=== PATIENT | female | born 1980 | race Hispanic/Latino ===

== ENCOUNTER 2021-03-07 19:52 | Inpatient (IN) | payer BC ==
[~2021-03-07] VITALS: Ht 165.1 cm; Wt 107.5 kg
[2021-03-07] MEDS ORDERED: LACTATED RINGERS 1000ML 1,000 ML IV SCH (23:00)
[2021-03-07 23:11] LABS: MEAN CORPUSCULAR HEMOGLOBIN 24.3 pg (27.0-33.0); MEAN CORPUSCULAR HGB CONC 31.6 g/dL (32.0-36.0); MEAN CORPUSCULAR VOLUME 76.7 fL (79-99); PLATELET COUNT (AUTO) 205 K/uL (130-400); RED BLOOD CELL COUNT(AUTO) 4.04 MIL/uL (4.00-5.50); RED CELL DISTRIBUTION WIDTH 14.6 % (11.0-15.5); WHITE BLOOD COUNT (AUTO) 5.4 K/uL (4.8-10.8)
[2021-03-07 23:25] LABS: APPEARANCE,URINE Clear (CLEAR); BILIRUBIN,URINE Negative (NEGATIVE); COLOR,URINE Yellow (YELLOW); GLUCOSE, URINE (UA) Negative (NEGATIVE); KETONES,URINE Trace mg/dL (NEGATIVE); LEUKOCYTE ESTERASE ,URINE Trace (NEGATIVE); NITRATE,URINE Negative (NEGATIVE); OCCULT BLOOD,URINE Negative (NEGATIVE); PROTEIN,URINE POS 1+ mg/dL (NEGATIVE)
[2021-03-07 23:36] LABS: BACTERIA,URINE Few /HPF (None Seen); RBC,URINE None Seen /HPF (0-1); SQUAMOUS EPITHELIAL CELL,UR Few /HPF (0-2); WBC,URINE 0-1 /HPF (0-1)
[2021-03-08 03:31] VITALS: BP 120/63
[2021-03-08] MEDS ORDERED: CEFAZOLIN SODIUM 1 GM VIAL IVP PRN (06:00)
[2021-03-08] MEDS ORDERED: MORPHINE PF 100MG/10ML AMP IV ONE (07:04)
[2021-03-08] MEDS ORDERED: EPHEDRINE SULFATE 50 MG/ML AMPULE ONE (07:04)
[2021-03-08] MEDS ORDERED: OXYTOCIN 10 USP UNITS/ML ONE (07:04)
[2021-03-08] MEDS ORDERED: ONDANSETRON 4MG INJ ONE (07:04)
[2021-03-08] MEDS ORDERED: CEFAZOLIN SODIUM 3 GM VIAL IV ONE (07:13)
[2021-03-08] MEDS ORDERED: MISOPROSTOL 200 MCG TABLET ONE (07:13)
[2021-03-08] MEDS ORDERED: METHYLERGONOVINE MALEATE 0.2 MG/1 ML ML ONE (07:18)
[2021-03-08] MEDS: OXYTOCIN-LR 20 UNITS/1000 ML 1,000 ML IV PRN ×2 (07:50→09:48)
[2021-03-08] MEDS ORDERED: FONDAPARINUX SODIUM 2.5 MG/0.5 ML SQ SCH (08:30)
[2021-03-08] MEDS ORDERED: OXYTOCIN-LR 20 UNITS/1000 ML 1,000 ML IV ONE (09:17)
[2021-03-08] MEDS ORDERED: MEPERIDINE-PF 75 MG/ML SYG IM PRN (09:30)
[2021-03-08] MEDS ORDERED: PROMETHAZINE HCL 25 MG/ML 1ML AMPULE IM PRN (09:30)
[2021-03-08] MEDS ORDERED: 0.9%NACL 10ML VIAL IVP PRN (09:30)
[2021-03-08 10:30] VITALS: BP 119/69
[2021-03-08 10:49] LABS: HEMATOCRIT 33.7 % (36-48)
[2021-03-08 11:50] VITALS: BP 118/69
[2021-03-08] MEDS ORDERED: LORA10CA PO (13:06)
[2021-03-08] MEDS ORDERED: PNV11TAB5 PO (13:06)
[2021-03-08] MEDS ORDERED: NALOXONE HCL 0.4 MG/1 ML ML IVP PRN ×3 (15:00)
[2021-03-08] MEDS ORDERED: EPHEDRINE SULFATE 50 MG/ML AMPULE IVP PRN (15:00)
[2021-03-08] MEDS ORDERED: DiphenhydrAMINE HCL 50 MG/ML VIAL IVP PRN (15:00)
[2021-03-08] MEDS: CEFAZOLIN SODIUM 1 GM VIAL IVP SCH ×2 (15:17→23:02)
[2021-03-08] MEDS: ONDANSETRON 4MG INJ IVP PRN (15:18)
[2021-03-08] MEDS: DEXTROSE 5 %-0.45 % NACL 1,000 ML IV PRN ×2 (15:18→23:31)
[2021-03-08 16:00] VITALS: BP 125/73
[2021-03-08 19:17] VITALS: BP 121/73
[2021-03-08 23:20] VITALS: BP 132/78
[2021-03-09 03:15] VITALS: BP 132/78
[2021-03-09] MEDS: DEXTROSE 5 %-0.45 % NACL 1,000 ML IV PRN (04:53)
[2021-03-09] MEDS: CEFAZOLIN SODIUM 1 GM VIAL IVP SCH ×2 (06:22→15:00)
[2021-03-09] MEDS: ONDANSETRON 4MG INJ IVP PRN (07:14)
[2021-03-09 07:20] VITALS: BP 128/81
[2021-03-09] MEDS ORDERED: DIPHENHYDRAMINE HCL 25 MG CAPSULE PO PRN (08:00)
[2021-03-09] MEDS ORDERED: BISACODYL 10 MG SUPP.RECT RC PRN (08:00)
[2021-03-09] MEDS ORDERED: ACETAMINOPHEN WITH CODEINE 1 TAB TAB PO PRN (08:00)
[2021-03-09] MEDS ORDERED: ACETAMINOPHEN 500 MG TABLET PO PRN (08:00)
[2021-03-09] MEDS ORDERED: HYDROCODONE/ACETAMINOPHEN 5/325 MG TAB PO PRN (08:00)
[2021-03-09 08:13] LABS: HEMATOCRIT 30.5 % (36-48); MEAN CORPUSCULAR HEMOGLOBIN 24.4 pg (27.0-33.0); MEAN CORPUSCULAR HGB CONC 31.1 g/dL (32.0-36.0); MEAN CORPUSCULAR VOLUME 78.2 fL (79-99); RED BLOOD CELL COUNT(AUTO) 3.9 MIL/uL (4.00-5.50); RED CELL DISTRIBUTION WIDTH 14.7 % (11.0-15.5); WHITE BLOOD COUNT (AUTO) 8.7 K/uL (4.8-10.8)
[2021-03-09 08:14] LABS: HEPATITIS Bs ANTIGEN SCREEN P Negative (Negative)
[2021-03-09] MEDS: SIMETHICONE 80 MG TAB.CHEW PO PRN ×4 (08:44→20:39)
[2021-03-09] MEDS: DOCUSATE SODIUM 100 MG CAP PO SCH ×2 (08:44→20:39)
[2021-03-09 11:36] VITALS: BP 117/66
[2021-03-09] MEDS: IBUPROFEN 600 MG TABLET PO PRN ×2 (13:17→18:45)
[2021-03-09 16:15] VITALS: BP 125/61
[2021-03-09] MEDS ORDERED: FERR-72 PO (17:55)
[2021-03-09] MEDS ORDERED: ACET1TAB25 PO (17:57)
[2021-03-09 21:05] VITALS: BP 128/69
[2021-03-10 00:30] VITALS: BP 125/56
[2021-03-10] MEDS: IBUPROFEN 600 MG TABLET PO PRN ×2 (00:54→07:49)
[2021-03-10 04:03] VITALS: BP 134/69
[2021-03-10 07:45] VITALS: BP 123/78
[2021-03-10] MEDS: SIMETHICONE 80 MG TAB.CHEW PO PRN (07:48)
[2021-03-10] MEDS: DOCUSATE SODIUM 100 MG CAP PO SCH (07:48)
[2021-03-10 12:00] VITALS: BP 120/73
== END 2021-03-10 13:00 | disposition home or self-care (01) | DRG 783 ==
LOC: LDH 20:55 → WSH 03-08 10:30
PROVIDERS: ADMIT Obstetrics & Gynecology; ATTEND Obstetrics & Gynecology
PROC: 10D00Z1 Extraction of Products of Conception, Low, Open Approach (ICD-10-PCS; 2021-03-08)
PROC: 0UB70ZZ Excision of Bilateral Fallopian Tubes, Open Approach (ICD-10-PCS; principal; 2021-03-08 07:00)
DX: O34.211 Maternal care for low transverse scar from previous cesarean delivery (principal); U07.1 COVID-19; O98.52 Other viral diseases complicating childbirth; O41.03X0 Oligohydramnios, third trimester, not applicable or unspecified; O36.63X0 Maternal care for excessive fetal growth, third trimester, not applicable or unspecified; Z37.0 Single live birth; O35.8XX0 Maternal care for other (suspected) fetal abnormality and damage, not applicable or unspecified; Z3A.38 38 weeks gestation of pregnancy; Z30.2 Encounter for sterilization; Z88.2 Allergy status to sulfonamides
CPT/HCPCS: 36415; 59510; 81001; 85014; 85018; 85027; 86156; 86592; 86850; 86870; 86900; 86901; 87340; 87635; A4344; A4606; G0378; J0690; J1652; J2175; J2210; J2274; J2405; J2550; J2590; J3490